=== PATIENT | female | born 1955 | race Caucasian/White ===

== ENCOUNTER 2023-05-04 07:22 | Day surgery (SDC) | payer MEDICARE, OTHER ==
[~2023-05-04] VITALS: Ht 160 cm; Wt 135.5 kg
[2023-05-04] VITALS (7 sets, daily range): BP systolic 106–127; BP diastolic 50–77
[~2023-05-04 07:22] MED LIST: ALDACTONE100 M1 PO; Ativan1 MG PO; B-COMPLEX1 EACH PO; BUPR100ER PO; BUPR150ER PO; CELE200 PO; CLINDAMYCIN PHO40 G1 TOP; ESCI20 PO; FURO20 PO; LEVSOD100 PO; LORA10ER PO; METO50ER PO; MUPIROCIN22 G4 TOP; Monodox100 MG PO; NALOXONE HCL4 MG; NITR.4SL SL; Naltrexone HCl50 MG PO; OMEP20ER PO; PROM12.5S PR; ROSU10TA PO; Retin-A20 GM TP; THERA-D2000 UNIT PO; TRAM50 PO; ZOLP5 PO
--- NOTE | 2023-05-04 10:15 | NUR ---
PT BACK TO RECOVERY ROOM VIA RECLINER AFTER PROCEDURE. AWAKE, BUT DOZING FREQUENTLY. TR BAND IN PLACE ON RIGHT RADIAL SITE, NO BLEEDING OR SWELLING NOTED. CALL LIGHT IN REACH, VSS.
--- NOTE | 2023-05-04 10:27 | NUR ---
PT EATING BREAKFAST, CURRENTLY DENIES PAIN OR NEEDS. VSS, CALL LIGHT IN REACH.
--- NOTE | 2023-05-04 11:15 | NUR ---
RIGHT RADIAL TR BAND HAS BEEN FULLY DEFLATED. NO BLEEDING OR SWELLING NOTED AT SITE. VSS, CALL LIGHT IN REACH.
--- NOTE | 2023-05-04 12:00 | NUR ---
IV DC'D, CATH INTACT. PT VERBALIZED UNDERSTANDING OF DC INSTRUCTIONS AND FOLLOW UP INFO. PT ABLE TO AMBULATE TO THE BATHROOM WITHOUT DIFFICULY. TR BAND HAS BEEN REMOVED, CLOTH DOT DRESSING AND SPLINT IN PLACE ON RIGHT WRIST. PT OUT TO CAR VIA WHEELCHAIR.
== END 2023-05-04 12:00 | disposition home or self-care (01) ==
LOC: MHTC 07:22
DX: I25.10 Atherosclerotic heart disease of native coronary artery without angina pectoris (principal); I10 Essential (primary) hypertension; I51.7 Cardiomegaly; I51.89 Other ill-defined heart diseases; M17.12 Unilateral primary osteoarthritis, left knee; Z88.8 Allergy status to other drugs, medicaments and biological substances; E78.00 Pure hypercholesterolemia, unspecified; Z68.43 Body mass index [BMI] 50.0-59.9, adult; E66.01 Morbid (severe) obesity due to excess calories
CPT/HCPCS: 76937; 93454; 99152; A9270; C1769; C1887; C1894; J1644; J2250; J3010; J7030; J7050; Q9967

== ENCOUNTER → 2023-05-08 | Outpatient (CLI) | payer MEDICARE, OTHER ==
[2023-05-08 17:10] LABS: BASOPHILS ABSOLUTE AUTO 0.06 K/mm3 (0.00-0.23); BASOPHILS PERCENT AUTO 1 % (0-2); EOSINOPHILS ABSOLUTE AUTO 0.24 K/mm3 (0.00-0.68); EOSINOPHILS PERCENT AUTO 2 % (0-6); Hematocrit 45.3 % (33.0-51.0); Hemoglobin 15.2 g/dL (11.5-16.0); IMMATURE GRAN ABSOLUTE AUTO 0.06 K/mm3 (0.00-0.10); IMMATURE GRAN PERCENT AUTO 1 % (0-1); LYMPHOCYTES ABSOLUTE AUTO 1.78 K/mm3 (0.84-5.20); LYMPHOCYTES PERCENT AUTO 18 % (21-46); MONOCYTES ABSOLUTE AUTO 0.64 K/mm3 (0.16-1.47); MONOCYTES PERCENT AUTO 6 % (4-13); Mean Corpuscular HGB 30.3 pg (26.0-34.0); Mean Corpuscular HGB Conc 33.6 g/dL (31.5-36.5); Mean Corpuscular Volume 90 fL (80-100); Mean Platelet Volume 10.6 fL (9.1-12.4); NEUTROPHILS PERCENT AUTO 72 % (41-73); Platelet Count 309 K/mm3 (150-400); RDW Coefficient Variation 13.2 % (11.7-14.2); RDW Standard Deviation 43.4 fL (35.1-46.3); Red Blood Cell Count 5.02 M/mm3 (3.80-5.20); White Blood Cell Count 10.08 K/mm3 (4.00-11.30)
[2023-05-08 17:21] LABS: Albumin, Blood 3.8 g/dL (3.4-5.0); Albumin/Globulin Ratio 0.9 (0.8-1.8); Bilirubin, Total 0.6 mg/dL (0.1-1.0); Bun/Creatinine Ratio 17.5 (12.0-20.0); Calcium, Blood 9.7 mg/dL (8.5-10.1); Creatinine, Blood 1.37 mg/dL (0.40-1.00); Globulin, Blood 4.1 g/dL (2.2-4.0); Potassium, Blood 4.4 mmol/L (3.5-5.5); Total Protein, Blood 7.9 g/dL (6.4-8.2)
== END | disposition home or self-care (01) ==
LOC: LAB 17:03 → LAB SHORT 17:03
PROVIDERS: Family Medicine
DX: R07.9 Chest pain, unspecified (principal); R06.00 Dyspnea, unspecified
CPT/HCPCS: 80053; 83880; 84484; 85025; 85379

== ENCOUNTER 2023-06-30 15:39 | Emergency (ER) | payer MEDICARE, OTHER ==
[~2023-06-30] VITALS: Ht 162.6 cm; Wt 140.2 kg
[2023-06-30 15:46] VITALS: BP 150/80
[2023-06-30 16:18] LABS: BASOPHILS ABSOLUTE AUTO 0.03 K/mm3 (0.00-0.23); BASOPHILS PERCENT AUTO 0 % (0-2); EOSINOPHILS ABSOLUTE AUTO 0.03 K/mm3 (0.00-0.68); EOSINOPHILS PERCENT AUTO 0 % (0-6); Hematocrit 45.1 % (33.0-51.0); Hemoglobin 15.4 g/dL (11.5-16.0); IMMATURE GRAN ABSOLUTE AUTO 0.04 K/mm3 (0.00-0.10); IMMATURE GRAN PERCENT AUTO 0 % (0-1); LYMPHOCYTES ABSOLUTE AUTO 0.47 K/mm3 (0.84-5.20); LYMPHOCYTES PERCENT AUTO 5 % (21-46); MONOCYTES ABSOLUTE AUTO 0.37 K/mm3 (0.16-1.47); MONOCYTES PERCENT AUTO 4 % (4-13); Mean Corpuscular HGB Conc 34.1 g/dL (31.5-36.5); Mean Corpuscular Volume 88 fL (80-100); Mean Platelet Volume 10.7 fL (9.1-12.4); NEUTROPHILS ABSOLUTE AUTO 9.23 K/mm3 (1.96-9.15); NEUTROPHILS PERCENT AUTO 91 % (41-73); Platelet Count 303 K/mm3 (150-400); RDW Coefficient Variation 13.3 % (11.7-14.2); RDW Standard Deviation 42.9 fL (35.1-46.3); Red Blood Cell Count 5.14 M/mm3 (3.80-5.20); White Blood Cell Count 10.17 K/mm3 (4.00-11.30)
[2023-06-30 16:36] LABS: Albumin, Blood 3.9 g/dL (3.4-5.0); Albumin/Globulin Ratio 0.9 (0.8-1.8); Bilirubin, Total 1.2 mg/dL (0.1-1.0); Bun/Creatinine Ratio 24.3 (12.0-20.0); Calcium, Blood 9.3 mg/dL (8.5-10.1); Creatinine, Blood 1.11 mg/dL (0.40-1.00); Globulin, Blood 4.4 g/dL (2.2-4.0); Magnesium, Blood 1.9 mg/dL (1.6-2.4); Potassium, Blood 4.2 mmol/L (3.5-5.5); Total Protein, Blood 8.3 g/dL (6.4-8.2)
[2023-06-30] MEDS ORDERED: ONDA4ODT MM (17:45)
== END 2023-06-30 18:36 | disposition home or self-care (01) ==
LOC: ER 15:39
PROVIDERS: Physician Assistant
DX: A08.4 Viral intestinal infection, unspecified (principal); E86.0 Dehydration; E87.1 Hypo-osmolality and hyponatremia; R79.89 Other specified abnormal findings of blood chemistry; I50.9 Heart failure, unspecified; I25.10 Atherosclerotic heart disease of native coronary artery without angina pectoris; E11.9 Type 2 diabetes mellitus without complications; Z20.822 Contact with and (suspected) exposure to COVID-19; Z88.8 Allergy status to other drugs, medicaments and biological substances; Z79.899 Other long term (current) drug therapy; Z79.890 Hormone replacement therapy
CPT/HCPCS: 80053; 83735; 85025; 96361; 96374; 96376; 99284-25; A9270; J2405; J7030